=== PATIENT | male | born 1950 | race Caucasian/White ===

== ENCOUNTER 2016-11-28 13:33 | Emergency (ER) | payer MEDICARE, OTHER ==
[~2016-11-28] VITALS: Ht 180.3 cm; Wt 111.0 kg
[2016-11-28 13:34] VITALS: BP 148/95; PULSE 87; RESP 17; TEMP 98.1; O2SAT 98
--- NOTE | 2016-11-28 16:39 | PD ---
HPI Chief Complaint: Medical Clearance Time Seen by Provider: 16:26 Travel History International Travel<30 days: No Contact w/Intl Traveler<30days: No Traveled to known affect area: No History of Present Illness HPI Pleasant 66-year-old male here with complaint of referral from his surgeon. Patient states that he had a fall 4 days ago injuring his left ankle. He was seen at urgent care and had a left ankle fracture diagnosed and was offered splint versus boot and shows to wear a boot. He has been walking on it since. Patient was referred to orthopedic surgery Dr. Adhikari today, who instructed him to come to the ER for further management. Patient did not actually see the physician today, and does not know why he was sent here. His pain is fairly well controlled and he denies any numbness or tingling. PFSH Past Medical History Cardiovascular Problems: Yes (HTN) Social History Tobacco Use: No Allergies-Medications (Allergen,Severity, Reaction): Coded Allergies: No Known Allergies (Unverified , 11/28/16) Review of Systems Except as stated in HPI: all other systems reviewed are Neg Physical Exam Narrative GENERAL: Pleasant male in no acute distress SKIN: Focused skin assessment warm/dry. HEAD: Normocephalic. EYES: No scleral icterus. No injection or drainage. ENT: Mucous membranes pink and moist. CARDIOVASCULAR: Regular rate and rhythm. RESPIRATORY: No accessory muscle use. GASTROINTESTINAL: Obese MUSCULOSKELETAL: Left ankle with swelling around the lateral malleolus with focal tenderness to palpation but fairly pain-free range of motion and good distal sensation and pulses NEUROLOGICAL: Awake and alert. Normal speech. PSYCHIATRIC: Appropriate mood and affect; insight and judgment normal. Data Data Last Documented VS Vital Signs Date Time Temp Pulse Resp B/P Pulse Ox O2 Delivery O2 Flow Rate FiO2 11/28/16 13:34 98.1 87 17 148/95 98 Orders Support Splint (11/28/16 16:22) Crutches (11/28/16 16:23) MDM Medical Decision Making Medical Screen Exam Complete: Yes Emergency Medical Condition: Yes Medical Record Reviewed: Yes Differential Diagnosis 66-year-old male here with left ankle pain. X-rays from outside imaging were obtained and reveal a left distal fibular fracture at the ankle mortise but no evidence of displacement. Patient was placed in short-leg splint, made nonweightbearing with crutches and given orthopedic surgery follow-up as an outpatient. Narrative Course See above Diagnosis Primary Impression: Closed fracture of left distal fibula Qualified Code: S82.832A - Other closed fracture of distal end of left fibula , initial encounter Referrals: Clay Rubin Jr., MD 1 week Additional Instructions: Tylenol, ibuprofen, Aleve as needed for pain. Nonweightbearing on the left lower extremity with crutches. Follow-up with orthopedic surgery as discussed. Med/Other Pt SpecificInfo: No Change to Meds Disposition: 01 DISCHARGE HOME Condition: Stable Tamia Live MD Nov 28, 2016 16:39
== END 2016-11-28 17:22 | disposition home or self-care (01) ==
LOC: NEPD 13:33
DX: S82.832A Other fracture of upper and lower end of left fibula, initial encounter for closed fracture (principal); W19.XXXA Unspecified fall, initial encounter
CPT/HCPCS: 29515; 99283; E0113

== ENCOUNTER → 2017-10-09 | Day surgery (SDC) | payer MEDICARE ==
[~2017-10-09] MED LIST: LACTATED RINGER'S 1000 ML INJ 1,000 ML ONE; PROPOFOL 200 MG/20 ML AMP IV ONE
--- NOTE | 2017-10-09 14:46 | GIPROC ---
[facility] [address], [address] COLONOSCOPY PROCEDURE REPORT EXAM DATE: 10/09/2017 PATIENT NAME: Bob Fernandez MR #: [id number] BIRTHDATE: 1950 ENDOSCOPIST: Ren Nielsen MD ORDER #: [id number] [employer] CONSULTANT: Ava Llanos RN STATUS: outpatient INDICATIONS: The patient is a 67 yr old male here for a colonoscopy due to high risk patient with personal history of colonic polyps PROCEDURE PERFORMED: Colonoscopy with polypectomy MEDICATIONS: None and Per Anesthesia. PREP QUALITY: fair ESTIMATED BLOOD LOSS: None CONSENT: The patient understands the risks and benefits of the procedure and understands that these risks include, but are not limited to: sedation, allergic reaction, infection, perforation and/or bleeding. Alternative means of evaluation and treatment include, among others: physical exam, x-rays, and/or surgical intervention. The patient elects to proceed with this endoscopic procedure. medical equipment was checked for proper function. Hand hygiene and appropriate measures for infection prevention was taken. After the risks, benefits and alternatives of the procedure were thoroughly explained, Informed consent was verified, confirmed and timeout was successfully executed by the treatment team. A digital exam revealed no abnormalities of the rectum The EC-[id number] ([id number]) endoscope was introduced through the anus and advanced to the cecum, which was identified by both the appendix and ileocecal valve. The instrument was then slowly withdrawn as the colon was fully examined. COLON FINDINGS: Eight small medium sized smooth sessile polyps were found in the ascending colon, descending colon, and rectum. A polypectomy was performed with a cold snare. The resection was complete and the polyp tissue was completely retrieved. Mild diverticulosis was noted in the sigmoid colon. The colon mucosa was otherwise normal. Retroflexed views revealed no abnormalities The scope was then completely withdrawn from the patient and the procedure terminated. PROCEDURE WITHDRAWAL TIME:18.7minutes ADVERSE EVENTS: There were no complications. IMPRESSIONS: 1. Eight small medium sized sessile polyps were found in the ascending colon, descending colon, and rectum; polypectomy was performed with a cold snare 2. Mild diverticulosis was noted in the sigmoid colon 3. The colon mucosa was otherwise normal 4. Retroflexed views revealed no abnormalities 5. Revealed no abnormalities of the rectum RECOMMENDATIONS: 1. Await biopsy results. Biopsy results will not be ready for 7-10 days. If you don't hear from us in two weeks, call our office for results. 2. High fiber diet 3. Yearly hemoccult 4. Follow-up: GI Clinic PRN RECALL: Return 3 years Colonoscopy Ren Nielsen MD eSigned: Ren Nielsen MD 10/09/2017 2:46 PM cc: Анна Hart M.D.
== END | disposition home or self-care (01) ==
LOC: ESDC 09:56
PROVIDERS: ATTEND Internal Medicine Gastroenterology
DX: Z12.11 Encounter for screening for malignant neoplasm of colon (principal); Z86.010 Personal history of colon polyps; D12.2 Benign neoplasm of ascending colon; D12.4 Benign neoplasm of descending colon; K62.1 Rectal polyp; K57.90 Diverticulosis of intestine, part unspecified, without perforation or abscess without bleeding
CPT/HCPCS: 00812; 45385; 88305; J7120